=== PATIENT | male | born 1960 | race African-American/Black ===

== ENCOUNTER → 2016-09-05 | Outpatient (CLI) | payer OTHER ==
--- NOTE | 2016-09-05 12:01 | EST ---
DATE OF SERVICE: 09/05/2016 AGE: 56Y SEX: M HT: 68 WT: 188 lbs. Protocol Morris: X Other: Stage: II Dur. of Exercise: 6 minutes *Heart Rate Blood Pressure *Rest: 79 Rest: 159/103 * *Max. Achieved: 147 Maximum BP: 172/83 85% PMHR: 139 100% PMHR: 163 *METS: 7 INDICATIONS: Chest pain. MEDICATIONS: Norvasc CLINICAL INFORMATION: Hypertension, chest pain, shortness of breath, family history of coronary artery disease. Resting ECG shows sinus rhythm, rate of 79 beats per minute, HI interval 0.16, QRS 0.08, normal ST-T waves. Utilizing a standard Morris protocol, a symptom limited treadmill test was performed. Patient exercised for total of 6 minutes and peak heart time of 147 beats per minute without any chest pain or pressure or ST segment deviations indicative of ischemia. Patient did not complain of any chest pain or pressure. No ST segment deviations indicative of ischemia are noted. IMPRESSION: 1. Baseline rhythm is sinus with normal HI interval, normal QRS, normal ST-T waves. 2. Negative exercise treadmill test at 90% of predicted maximum heart rate. 3. Patient has below average level of cardiopulmonary fitness as indicated by VO2 max and METs. Patient attained peak metabolic activity equivalent to 7 METs.
== END | disposition home or self-care (01) ==
LOC: RADNMMAIN 10:33
PROVIDERS: ATTEND Internal Medicine
DX: R07.9 Chest pain, unspecified (principal)
CPT/HCPCS: 93017

== ENCOUNTER 2021-07-31 18:21 | Emergency (ER) | payer MEDICARE, OTHER ==
[2021-07-31] MEDS ORDERED: ONDANSETRON ODT 4 MG TAB PO STA (21:18)
[2021-07-31] MEDS ORDERED: ACETAMINOPHEN TAB 500 MG TAB PO STA (21:19)
[2021-07-31] MEDS ORDERED: ALBUTEROL HFA INHALER INHALATION STA (21:20)
--- NOTE | 2021-07-31 22:33 | XR ---
EXAMINATION TYPE: XR chest 2V DATE OF EXAM: 07/31/2021 COMPARISON: 09/21/2015 HISTORY: Pneumonia. Covid. TECHNIQUE: FINDINGS: There is some mild airspace infiltrate left lower lobe. There is poor inspiration. Heart an d mediastinum are normal. Bony thorax is intact. IMPRESSION: There is some left lower lobe pneumonia which is new compared to old exam.
[2021-07-31] MEDS ORDERED: IBUPROFEN 600 MG TAB PO STA (23:06)
--- NOTE | 2021-07-31 23:41 | ED ---
SOB HPI - General Chief Complaint: Shortness of Breath Stated Complaint: post infusion-SOB & cough Source: patient Mode of arrival: ambulatory Limitations: no limitations - History of Present Illness Initial Comments: Patient is a 60-year-old male with past medical history of CVA and hypertension who presents emergency department reporting shortness of breath and nausea. The patient states that he tested positive for Covid on the ninth. He has had symptoms since the fifth. He went today at 11 AM and had antibody infusion performed through [facility]. Reports that he felt fine up until after his infusion when he began having nausea and shortness of breath. He denies having any chest pain. He has been taking Motrin Tylenol for his fevers. No history of DVT or PE. No calf pain or swelling. Denies any vomiting. No abdominal pain. No other alleviating, precipitating or modifying factors - Related Data Home Medications Medication Instructions Recorded Confirmed Aspirin 325 mg PO DAILY 02/06/15 09/21/15 HYDROcodone/APAP 10-325MG [[place] 1 tab PO Q4HR PRN 02/06/15 09/21/15 10-325] amLODIPine BESYLATE [Norvasc] 5 mg PO DAILY 02/06/15 09/21/15 ALPRAZolam [Xanax] 0.25 mg PO BID PRN 09/21/15 09/21/15 Pantoprazole Sodium [Protonix] 40 mg PO AC-BRKFST 09/21/15 09/21/15 predniSONE [Deltasone] 20 mg PO DAILY 09/21/15 09/21/15 Previous Rx's Medication Instructions Recorded Atorvastatin Calcium [Lipitor] 20 mg PO HS #30 tab 09/22/15 Albuterol Inhaler [Ventolin Hfa 2 puff INHALATION RT-QID #8 gm 07/31/21 Inhaler] Ondansetron Odt [Zofran Odt] 4 mg PO Q8HR PRN #15 tab 07/31/21 Allergies Allergy/AdvReac Type Severity Reaction Status Date / Time No Known Allergies Allergy Verified 07/31/21 20:31 Review of Systems ROS Statement: Those systems with pertinent positive or pertinent negative responses have been documented in the HPI. ROS Other: All systems not noted in ROS Statement are negative. Past Medical History Past Medical History: CVA/TIA, Hypertension Additional Past Medical History / Comment(s): 2--16 admitted for c/o chest heaviness radiating to jaw,mild sob. clinical impression:unstable angine. other past medical hx includes: past tia, anxiety, rheumatic fever as a child. was told he has a hole in his heart. lt distal fibula fx has plate and 7 screws. hank inguinal hernia's(respaired). stress test in 2014 was wnl. has been on steroids for 1 week for lt shoulder pain and lt arm numbess and stated has an mri set up for this coming friday. History of Any Multi-Drug Resistant Organisms: None Reported Past Surgical History: Hernia Repair, Orthopedic Surgery Additional Past Surgical History / Comment(s): orif lt distal fibula jhas plat and 7 screws, hank inguinal hernia repairs age 8, sx to open urinary tract Past Anesthesia/Blood Transfusion Reactions: No Reported Reaction Additional Past Anesthesia/Blood Transfusion Reaction / Comment(s): clausterphobia Past Psychological History: Anxiety Smoking Status: Never smoker Past Alcohol Use History: Occasional Past Drug Use History: None Reported - Past Family History Father Family Medical History: Cancer Additional Family Medical History / Comment(s): lung ca, mesothelioma. was smoker and lime [employer] worker Mother Family Medical History: Cancer Additional Family Medical History / Comment(s): lung cancer-non smoker(2nd hand smoke) General Exam Limitations: no limitations Course Vital Signs 07/31/21 07/31/21 08/01/21 20:26 23:03 00:01 Temperature 100.8 F H 102.1 F H 100.4 F H Pulse Rate 116 H 87 89 Respiratory 18 16 19 Rate Blood Pressure 142/89 123/71 131/74 O2 Sat by Pulse 99 96 Oximetry Medical Decision Making - Medical Decision Making Rectal patient is placed in the hallway 22. Thorough history and physical exam was performed. He does present and has a high fever. He was given a dose of Tylenol and Zofran. He is saturating 99% without any increased work of breathing. X-ray is performed which does demonstrate a left lower lobe pneumonia. Patient is given 2 puffs of an albuterol inhaler. He continues to have a high fever and therefore is given a dose of Motrin. Patient was observed in the emergency room for several hours and reports improvement in his symptoms. Patient will be discharged home at this time with a Zofran starter pack. Additional Zofran is sent to the pharmacy as well as an albuterol inhaler. Patient is informed that his antibody infusion will take up to 72 hours to make him feel better. He does have a pulse ox at home. Instructed to return for any oxygenation in the 80s. Patient understood this. He is given written and verbal discharge instructions and discharged home in stable condition Disposition Clinical Impression: COVID-19, Nausea & vomiting Disposition: HOME SELF-CARE Condition: Stable Instructions (If sedation given, give patient instructions): Coronavirus Disease 2019 (COVID-19) Additional Instructions: Please check your pulse ox frequently. Return if your oxygenation is in the 80s. Take the Zofran as needed for nausea. Alternate taking either Dalbo/plain tylenol with Motrin every 4 hours. Return for any new or worsening symptoms Prescriptions: Albuterol Inhaler [Ventolin Hfa Inhaler] 2 puff INHALATION RT-QID #8 gm Ondansetron Odt [Zofran Odt] 4 mg PO Q8HR PRN #15 tab PRN Reason: Nausea Is patient prescribed a controlled substance at d/c from ED?: No Referrals: Leandro Churchill MD [Primary Care Provider] - 1-2 days Time of Disposition: 23:41
[2021-07-31] MEDS ORDERED: ONDANSETRON 4 MG ODT STARTER PACK 2 TAB BTL PO STA (23:54)
[2021-08-01 00:02] VITALS: BP 131/74; PULSE 89; RESP 19; TEMP 100.4
== END 2021-08-01 00:02 | disposition home or self-care (01) ==
LOC: EC 18:21
DX: U07.1 COVID-19 (principal); R11.2 Nausea with vomiting, unspecified; I10 Essential (primary) hypertension; F41.9 Anxiety disorder, unspecified; Z79.82 Long term (current) use of aspirin; Z86.73 Personal history of transient ischemic attack (TIA), and cerebral infarction without residual deficits
CPT/HCPCS: 99284; 94640; 71046; S0119

== ENCOUNTER → 2023-06-27 | Outpatient (CLI) | payer OTHER ==
--- NOTE | 2023-06-27 15:51 | US ---
EXAMINATION TYPE: US kidneys/renal and bladder DATE OF EXAM: 06/27/2023 COMPARISON: NONE CLINICAL INDICATION: Male, 62 years old with history of R10.9 UNSPECIFIED ABDOMINAL PAIN; Flank pain EXAM MEASUREMENTS: Right Kidney: 10.3 x 5.8 x 5.7 cm Left Kidney: 9.9 x 5.8 x 5.1 cm Right Kidney: 3.8 x 3.4 x 3.5 cm anechoic structure with a septation located inferior/ lateral. 2.1 x 1.8 x 2.1 cm anechoic area located mid right kidney. Left Kidney: No hydronephrosis or masses seen as best visualized Bladder: wnl Bilateral Jets seen: Yes There is no evidence for hydronephrosis at this point in time. No nephrolithiasis is seen. 3.[address] within the inferior/lateral right kidney with thin septation. Additional thin wall cyst within the right mid kidney measuring up to 2.1 cm. No solid masses are identified. Cortical medullary differe ntiation is maintained. The urinary bladder is anechoic. Bilateral ureteral jets are seen. IMPRESSION: 1. No hydronephrosis or nephrolithiasis. 2. Right renal thin-walled cysts with one containing thin septation.
== END | disposition home or self-care (01) ==
LOC: RADUSWWP 15:03
PROVIDERS: ATTEND Internal Medicine
DX: N28.1 Cyst of kidney, acquired (principal)
CPT/HCPCS: 76770

== ENCOUNTER 2024-08-07 11:14 | Emergency (ER) | payer OTHER ==
--- NOTE | 2024-08-07 12:13 | ED ---
General Adult HPI - General Chief complaint: Neuro Symptoms/Deficit Stated complaint: high BP Time Seen by Provider: 08/07/24 11:35 Source: patient, RN notes reviewed, old records reviewed Mode of arrival: ambulatory Limitations: no limitations - History of Present Illness Initial comments: This is a 63-year-old male who presents to the emergency department stating that his blood pressure has been elevated last few days. Patient states last night his vision was extremely blurry but is not blurry now. Patient denies any headache. Patient Nuys chest pain or difficulty breathing. Patient states he was down in [place] for 11 days and he has 2 blood pressure medications but he was only taking 1 because he left the other 1 home. Patient denies any recent fever chills or cough. Patient states currently he does not feel that bad he just felt like his blood pressure was elevated and he could not get an accurate reading at home so he decided come to the emergency department - Related Data Home Medications Medication Instructions Recorded Confirmed Aspirin 325 mg PO DAILY 02/06/15 09/21/15 HYDROcodone/APAP 10-325MG [[place] 1 tab PO Q4HR PRN 02/06/15 09/21/15 10-325] amLODIPine BESYLATE [Norvasc] 5 mg PO DAILY 02/06/15 09/21/15 ALPRAZolam [Xanax] 0.25 mg PO BID PRN 09/21/15 09/21/15 Pantoprazole Sodium [Protonix] 40 mg PO AC-BRKFST 09/21/15 09/21/15 predniSONE [Deltasone] 20 mg PO DAILY 09/21/15 09/21/15 Previous Rx's Medication Instructions Recorded Atorvastatin Calcium [Lipitor] 20 mg PO HS #30 tab 09/22/15 Albuterol Inhaler [Ventolin Hfa 2 puff INHALATION RT-QID #8 gm 07/31/21 Inhaler] Ondansetron Odt [Zofran Odt] 4 mg PO Q8HR PRN #15 tab 07/31/21 Allergies Allergy/AdvReac Type Severity Reaction Status Date / Time No Known Allergies Allergy Verified 08/07/24 11:29 Review of Systems ROS Statement: Those systems with pertinent positive or pertinent negative responses have been documented in the HPI. ROS Other: All systems not noted in ROS Statement are negative. Past Medical History Past Medical History: CVA/TIA, Hypertension Additional Past Medical History / Comment(s): 2-16 admitted for c/o chest heaviness radiating to jaw,mild sob. clinical impression:unstable angine. other past medical hx includes: past tia, anxiety, rheumatic fever as a child. was told he has a hole in his heart. lt distal fibula fx has plate and 7 screws. hank inguinal hernia's(respaired). stress test in 2014 was wnl. has been on steroids for 1 week for lt shoulder pain and lt arm numbess and stated has an mri set up for this coming friday. History of Any Multi-Drug Resistant Organisms: None Reported Past Surgical History: Hernia Repair, Orthopedic Surgery Additional Past Surgical History / Comment(s): orif lt distal fibula jhas plat and 7 screws, hank inguinal hernia repairs age 8, sx to open urinary tract Past Anesthesia/Blood Transfusion Reactions: No Reported Reaction Additional Past Anesthesia/Blood Transfusion Reaction / Comment(s): hilario sterphobia Past Psychological History: Anxiety Smoking Status: Never smoker Past Alcohol Use History: Occasional Past Drug Use History: None Reported - Past Family History Father Family Medical History: Cancer Additional Family Medical History / Comment(s): lung ca, mesothelioma. 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 Patient is nontoxic and well- hydrated and is in no acute distress. ENT: Neck is soft and supple. No significant lymphadenopathy is noted. Oropharynx is clear. Moist mucous membranes. Neck has full range of motion without eliciting any pain. EYES: The sclera were anicteric and conjunctiva were pink and moist. Extraocular movements were intact and pupils were equal round and reactive to light. Eyelids were unremarkable. PULMONARY: Unlabored respirations. Good breath sounds bilaterally. No audible rales rhonchi or wheezing was noted. CARDIOVASCULAR: There is a regular rate and rhythm without any murmurs gallops or rubs. ABDOMEN: Soft and nontender with normal bowel sounds. SKIN: Skin is clear with no lesions or rashes and otherwise unremarkable. NEUROLOGIC: Patient is alert and oriented x3. Cranial nerves II through XII are grossly intact. Motor and sensory are also intact. Normal speech, volume and content. Symmetrical smile. MUSCULOSKELETAL: Normal extremities with adequate strength and full range of motion. No lower extremity swelling or edema. No calf tenderness. LYMPHATICS: No significant lymphadenopathy is noted PSYCHIATRIC: Normal psychiatric evaluation. Limitations: no limitations Course Vital Signs 08/07/24 08/07/24 08/07/24 11:29 13:18 13:19 Temperature 98.5 F Pulse Rate 77 57 L Respiratory 18 16 Rate Blood Pressure 155/93 152/104 O2 Sat by Pulse 96 100 Oximetry Medical Decision Making - Medical Decision Making EKG is interpreted by myself. EKG shows sinus bradycardia at 54 bpm NM interval is 176 QRS is 88 QT interval is 402 QTc is 387. Patient's EKG shows no ST segment elevation or depression Was pt. sent in by a medical professional or institution ([facility], MANAGER AREA, urgent care, hospital, or [facility]...) When possible be specific @ -No Did you speak to anyone other than the patient for history (EMS, parent, family, police, friend...)? What history was obtained from this source @ -No Did you review nursing and triage notes (agree or disagree)? Why? @ -I reviewed and agree with nursing and triage notes Were old charts reviewed (outside hosp., previous admission, EMS record, old EKG, old radiological studies, urgent care reports/EKG's, [facility] records)? Report findings @ -No old charts were reviewed Differential Diagnosis? @ -Hypertension, hypertensive urgency, CVA, this is not an all-inclusive list EKG interpreted by me (3pts min.). @ -As above X-rays interpreted by me (1pt min.). @ -None done CT interpreted by me (1pt min.). @ -CT of the brain shows no acute abnormality U/S interpreted by me (1pt. min.). @ -None done What testing was considered but not performed or refused? (CT, X-rays, U/S, labs)? Why? @ -None What meds were considered but not given or refused? Why? @ -None Did you discuss the management of the patient with other professionals (professionals i.e. [facility], MANAGER AREA, lab, RT, psych nurse, social media community manager, support coordinator, teacher, chief communications officer, rn case manager hospice)? Give summary @ -No Was smoking cessation discussed for >3mins.? @ -No Was critical care preformed (if so, how long)? @ -No Were there social determinants of health that impacted care today? How? (Homelessness, low income, unemployed, alcoholism, drug addiction, transportation, low edu. Level, literacy, decrease access to med. care, long-term, rehab)? @ -No Was there de-escalation of care discussed even if they declined (Discuss DNR or withdrawal of care, Hospice)? DNR status @ -No What co-morbidities impacted this encounter? (DM, HTN, Smoking, COPD, CAD, Cancer, CVA, ARF, Chemo, Hep., AIDS, mental health diagnosis, sleep apnea, morbid obesity)? @ -None Was patient admitted / discharged? Hospital course, mention meds given and route, prescriptions, significant lab abnormalities, going to OR and other pertinent info. @ -Going back into the room to reevaluate the patient he was feeling back to his baseline he had no blurred vision or headache at this time. Patient's blood pressure was 152/104. Undiagnosed new problem with uncertain prognosis? @ -No Drug Therapy requiring intensive monitoring for toxicity (Heparin, Nitro, Insulin, Cardizem)? @ -No Were any procedures done? @ -No Diagnosis/symptom? @ -Hypertension Acute, or Chronic, or Acute on Chronic? @ -Acute Uncomplicated (without systemic symptoms) or Complicated (systemic symptoms)? @ -Complicated Side effects of treatment? @ -No Exacerbation, Progression, or Severe Exacerbation? @ -No Poses a threat to life or bodily function? How? (Chest pain, [place], AL, pneumonia, PE, COPD, DKA, ARF, appy, cholecystitis, CVA, Diverticulitis, Homicidal, Suicidal, threat to staff... and all critical care pts) @ -No - Lab Data Result diagrams: 08/07/24 12:12 08/07/24 12:12 Lab Results 08/07/24 08/07/24 08/07/24 Range/Units 12:12 12:12 12:12 WBC 3.7 L (3.8-10.6) k/uL RBC 4.69 (4.30-5.90) m/uL Hgb 14.7 (13.0-17.5) gm/dL Hct 44.2 (39.0-53.0) % MCV 94.1 (80.0-100.0) fL MCH 31.3 (25.0-35.0) pg MCHC 33.2 (31.0-37.0) g/dL RDW 13.4 (11.5-15.5) % Plt Count 220 (150-450) k/uL MPV 7.9 Neutrophils % 48 % Lymphocytes % 37 % Monocytes % 6 % Eosinophils % 5 % Basophils % 1 % Neutrophils # 1.8 (1.3-7.7) k/uL Lymphocytes # 1.4 (1.0-4.8) k/uL Monocytes # 0.2 (0-1.0) k/uL Eosinophils # 0.2 (0-0.7) k/uL Basophils # 0.0 (0-0.2) k/uL PT 10.6 (10.0-12.5) sec INR 1.0 (<1.2) APTT 25.9 (22.0-30.0) sec Sodium 138 (137-145) mmol/L Potassium 4.1 (3.5-5.1) mmol/L Chloride 102 (98-107) mmol/L Carbon Dioxide 30 (22-30) mmol/L Anion Gap 6 mmol/L BUN 10 (9-20) mg/dL Creatinine 0.95 (0.66-1.25) mg/dL Est GFR (CKD-EPI)AfAm >90 (>60 ml/min/1.73 sqM) Est GFR (CKD-EPI)NonAf 85 (>60 ml/min/1.73 sqM) Glucose 102 H (74-99) mg/dL Calcium 9.5 (8.4-10.2) mg/dL Magnesium 2.1 (1.6-2.3) mg/dL Total Bilirubin 0.6 (0.2-1.3) mg/dL AST 20 (17-59) U/L ALT 17 (4-49) U/L Alkaline Phosphatase 55 (38-126) U/L Troponin I (0.000-0.034) ng/mL Total Protein 7.4 (6.3-8.2) g/dL Albumin 4.8 (3.5-5.0) g/dL 08/07/24 Range/Units 12:12 WBC (3.8-10.6) k/uL RBC (4.30-5.90) m/uL Hgb (13.0-17.5) gm/dL Hct (39.0-53.0) % MCV (80.0-100.0) fL MCH (25.0-35.0) pg MCHC (31.0-37.0) g/dL RDW (11.5-15.5) % Plt Count (150-450) k/uL MPV Neutrophils % % Lymphocytes % % Monocytes % % Eosinophils % % Basophils % % Neutrophils # (1.3-7.7) k/uL Lymphocytes # (1.0-4.8) k/uL Monocytes # (0-1.0) k/uL Eosinophils # (0-0.7) k/uL Basophils # (0-0.2) k/uL PT (10.0-12.5) sec INR (<1.2) APTT (22.0-30.0) sec Sodium (137-145) mmol/L Potassium (3.5-5.1) mmol/L Chloride (98-107) mmol/L Carbon Dioxide (22-30) mmol/L Anion Gap mmol/L BUN (9-20) mg/dL Creatinine (0.66-1.25) mg/dL Est GFR (CKD-EPI)AfAm (>60 ml/min/1.73 sqM) Est GFR (CKD-EPI)NonAf (>60 ml/min/1.73 sqM) Glucose (74-99) mg/dL Calcium (8.4-10.2) mg/dL Magnesium (1.6-2.3) mg/dL Total Bilirubin (0.2-1.3) mg/dL AST (17-59) U/L ALT (4-49) U/L Alkaline Phosphatase (38-126) U/L Troponin I <0.012 (0.000-0.034) ng/mL Total Protein (6.3-8.2) g/dL Albumin (3.5-5.0) g/dL Disposition Clinical Impression: Hypertension Disposition: HOME SELF-CARE Condition: Good Instructions (If sedation given, give patient instructions): Hypertension (ED) Additional Instructions: Patient should take both of his high blood pressure medications Is patient prescribed a controlled substance at d/c from ED?: No Referrals: Leandro Churchill MD [Primary Care Provider] - 1-2 days Time of Disposition: 13:46
[2024-08-07 12:21] LABS: Basophils % (A) 1 %; Eosinophils # (A) 0.2 k/uL (0-0.7); Eosinophils % (A) 5 %; HCT 44.2 % (39.0-53.0); HGB 14.7 gm/dL (13.0-17.5); Lymphocytes # (A) 1.4 k/uL (1.0-4.8); Lymphocytes % (A) 37 %; MCH 31.3 pg (25.0-35.0); MCHC 33.2 g/dL (31.0-37.0); MCV 94.1 fL (80.0-100.0); Mean Platelet Volume 7.9; Monocytes # (A) 0.2 k/uL (0-1.0); Monocytes % (A) 6 %; Neutrophils # (A) 1.8 k/uL (1.3-7.7); Neutrophils % (A) 48 %; Platelet Count 220 k/uL (150-450); RBC 4.69 m/uL (4.30-5.90); RDW 13.4 % (11.5-15.5); WBC 3.7 k/uL (3.8-10.6)
[2024-08-07 12:31] LABS: Partial Thromboplastin Time 25.9 sec (22.0-30.0); Prothrombin Time 10.6 sec (10.0-12.5)
[2024-08-07 12:36] LABS: ALT 17 U/L (4-49); AST 20 U/L (17-59); African American GFR (CKD) >90 (>60 ml/min/1.73 sqM); Albumin 4.8 g/dL (3.5-5.0); Alkaline Phosphatase 55 U/L (38-126); Anion Gap 6 mmol/L; Blood Urea Nitrogen 10 mg/dL (9-20); Calcium 9.5 mg/dL (8.4-10.2); Carbon Dioxide 30 mmol/L (22-30); Chloride 102 mmol/L (98-107); Glucose 102 mg/dL (74-99); Magnesium 2.1 mg/dL (1.6-2.3); Non-African American GFR(CKD) 85 (>60 ml/min/1.73 sqM); Potassium 4.1 mmol/L (3.5-5.1); Sodium 138 mmol/L (137-145); Total Bilirubin 0.6 mg/dL (0.2-1.3); Total Protein 7.4 g/dL (6.3-8.2)
--- NOTE | 2024-08-07 12:44 | CT ---
EXAMINATION TYPE: CT brain wo con DATE OF EXAM: 08/07/2024 12:27 PM COMPARISON: 11/19/2013. CLINICAL INDICATION: Male, 63 years old with history of Blurred vision, blurred vision and dizziness. TECHNIQUE: Brain: Axial CT images of the brain were obtained with coronal and sagittal reformats created and rev iewed. Contrast used: None. Oral contrast used: None. CT DLP: 1169.4 mGycm, Automated exposure control for dose reduction was used. FINDINGS: Brain: Extra-axial spaces: No abnormal extra-axial fluid collections. Ventricular system: Within normal limits Cerebral parenchyma: No acute intraparenchymal hemorrhage or mass effect. The ovalles-white junction is well differentiated. Cerebellum: Unremarkable. Mass effect: No evidence of midline shift. Intracranial vasculature: unremarkable Soft tissues: Normal. Calvarium/osseous structures: No depressed skull fracture. Paranasal sinuses and mastoid air cells: Mild scattered paranasal sinus disease. Visualized orbits: Orbital contents are intact. IMPRESSION: No acute intracranial process. [facility], , 08/07/2024 12:42 PM
--- NOTE | 2024-08-07 12:45 | XR ---
EXAMINATION TYPE: XR chest 2V DATE OF EXAM: 08/07/2024 12:28 PM COMPARISON: Chest radiographs from 07/31/2021 CLINICAL INDICATION: Male, 63 years old with history of Chest Pain; TECHNIQUE: XR chest 2V Frontal and lateral views of the chest. FINDINGS: Lungs/Pleura: There is no evidence of pleural effusion, focal consolidation, or pneumothorax. Pulmonary vascularity: Unremarkable. Heart/mediastinum: Cardiomediastinal silhouette is unremarkable. Musculoskeletal: No acute osseous pathology. IMPRESSION: No acute cardiopulmonary disease/process. [facility], , 08/07/2024 12:43 PM
[2024-08-07] MEDS ORDERED: NITROGLYCERIN SL TABS 0.4 MG TAB SUBLINGUAL PRN (13:02)
[2024-08-07 14:39] VITALS: BP 162/91; PULSE 64; RESP 20; TEMP 98
== END 2024-08-07 14:20 | disposition home or self-care (01) ==
LOC: EC 11:14
DX: I10 Essential (primary) hypertension (principal)
CPT/HCPCS: 36415; 70450; 71046; 80053; 83735; 84484; 85025; 85610; 85730; 93005; 99284